=== PATIENT | female | born 1990 | race Caucasian/White ===

== ENCOUNTER 2017-04-20 18:12 | Emergency (ER) | payer MEDICAID, OTHER, SELFPAY ==
[~2017-04-20] VITALS: Ht 170.2 cm; Wt 73.4 kg
[2017-04-20] MEDS ORDERED: MORPHINE SULFATE 4 MG/ML, 1ML IVPush PRN (18:30)
[2017-04-20] MEDS ORDERED: DEXAMETHASONE 4 MG/ML, 1ML IV ONE (18:30)
[2017-04-20] MEDS ORDERED: CEFTRIAXONE 1,000 MG IVPB ONE (18:30)
[2017-04-20] MEDS ORDERED: SODIUM CHLORIDE 0.9% 1,000ML IVBOLUS ONE (18:30)
[2017-04-20] MEDS ORDERED: SODIUM CHLORIDE FLUSH 10ML SYR IVF ONE (18:30)
[2017-04-20] MEDS ORDERED: KETOROLAC 30 MG/1 ML IVPush ONE (18:30)
[2017-04-20 18:54] LABS: BLOOD UREA NITROGEN 10 mg/dL (7-18)
[2017-04-20] MEDS ORDERED: KETOROLAC 30 MG/1 ML ONE (19:05)
[2017-04-20] MEDS ORDERED: MORPHINE SULFATE 4 MG/ML, 1ML ONE (19:05)
[2017-04-20] MEDS ORDERED: CEFTRIAXONE PMX 1GM/50ML 50 ML ONE (19:05)
[2017-04-20] MEDS ORDERED: OMNIPAQUE 350 MG/ML, 100ML BOTTLE ONE (20:34)
[2017-04-20 20:59] VITALS: BP 111/72
== END 2017-04-20 21:54 | disposition home or self-care (01) ==
LOC: ED 20:50
DX: J03.90 Acute tonsillitis, unspecified (principal)
CPT/HCPCS: 36415; 70491; 80048; 82040; 85025; 87040; 96361; 96365; 96375; 99285; J0696; J1885; J7030; Q9967